=== PATIENT | female | born 1995 | race Caucasian/White ===

== ENCOUNTER 2017-05-25 18:14 | Outpatient (CLI) | payer OTHER ==
--- NOTE | 2017-05-25 19:07 | RADRPT ---
PROCEDURE: US OB Limited for Estimated Weight. CLINICAL INDICATION: 21 years of age, female. Decreased movements TECHNIQUE: Multiple sonographic images of the pelvis were obtained. Transabdominal imaging only w as performed. The images were reviewed on a PACS workstation. Image quality: Satisfactory. COMPARISON: No prior studies are available for comparison. FINDINGS: Mathews : Number of fetuses: 1 GENERAL EVALUATION: Cardiac activity: Present. FHR 131 bpm Presentation: Cephalic Placenta: Placenta site: Fundal. No evidence of placental previa. Placental grade 2-3 Cervix (transabdominal): Not evaluated CLARICE: Not evaluated DATING: Clinical MANUEL: May 27, 2017 EGA based on MANUEL: 39 weeks 5 days BIOMETRY: BPD = 9.6 cm , 39 weeks 0 days HC = 33.7 cm , 38 weeks 4 days AC = 35.7 cm , 39 weeks 4 days FL = 7.3 cm , 37 weeks 3 days Composite sonographic age: 38 weeks 5 days plus or minus 3 weeks Estimated due date by ultrasound measurements: June 03, 2017 EFW 3639 grams, 56 percentile. ANATOMY: Not evaluated. IMPRESSION: 1. Single living fetus in cephalic presentation. 2. Clinical gestation age of 39 weeks 5 days and clinical MANUEL May 27, 2017 are concordant with th e composite sonographic age within 1 week. 3. Estimated weight is 3639 grams that is at the 56 percentile for gestational age. 4. Fundal placenta grade 2-3 RPTAT: HCTS Physician Drea Date Time Electronically viewed and signed by Physician Drea on 05/25/2017 19:07 CS/
--- NOTE | 2017-05-25 19:09 | RADRPT ---
PROCEDURE: OB ultrasound for biophysical profile CLINICAL INDICATION: 21 years of age, female. Decreased movements TECHNIQUE: Multiple sonographic images of the pelvis were obtained. Transabdominal view of the gr avid uterus are available for review. The images were reviewed on a PACS workstation. COMPARISON: None available. FINDINGS: breathing movement = 2/2 tone = 2/2 motion = 2/2 Amniotic fluid = 2/2 CLARICE = 11 cm Single live intrauterine in cephalic presentation. heart rate measures 129 bpm. Fundal placenta, grade 2-3. IMPRESSION: 1. Single living fetus in cephalic presentation. 2. Biophysical profile = 8/8. 3. CLARICE = 11 cm. 4. Fundal placenta grade 2-3 RPTAT: HCTS Physician Drea Date Time Electronically viewed and signed by Janelel Grace Physician on 05/25/2017 19:08 CS/
--- NOTE | 2017-05-25 21:07 | PN ---
Triage Information Date/Time May 25, 2017 Reason for visit: DFM Weeks of Gestation 39w 5d /Para 1/0 Diabetes: none Hypertention: none Additional information PMHx: none. PSHx: none. NKDA. Objective T=97.9 BP 100/56 Heart Rate: 130's Heart Rate Comments with accels to 150's. No decels. Contractions: >10 Minutes Apart Exam Cervix closed in the office today, done by Dr Velazquez. Results/Medications Imaging Results EFW 3639 grams. VTX. BPP 05/09 with an CLARICE of 11. Disposition: Discharge Assessment/Plan Per Dr Velazquez, he wants the pt to return on 05/27 for a repeat CLARICE/BPP. Labor precautions reviewed with pt. ANA CRISTINA RABAGO MD May 25, 2017 21:06
--- NOTE | 2017-05-25 21:13 | TRIAGE ---
OB Triage Datetime Report Generated by CPN: 05/25/2017 21:13 Datetime: 05/25/2017 18:20 Stage of : OB Triage Assessment Type: Triage Maternal Assessment Level of Consciousness: Fully Conscious DTR's/Clonus: DTRs 2+; No Clonus Headache: Denies Blurred Vision: No Respiratory Effort: Unlabored; Regular Rhythm; Equal Expansion Breath Sounds, Left: Clear and Equal Breath Sounds, Right: Clear and Equal Nausea/Vomiting: Denies RUQ Epigastric Pain: Denies Lower Extremities Edema: None Degree: None Upper Extremities Edema: None Degree: None Facial Edema: None Temperature Route: Oral Fall Risk Assessment History of Falling: (0) No Secondary Diagnosis: (0) No Ambulatory Aid: (0) Bedrest/Nurse Assist IV Therapy: (0) No Gait: (0) Normal/Bedrest/Immobile Mental Status: (0) Oriented to Own Ability Fall Score: 0 Fall Risk Score Definition: No Risk: No action required Labor Evaluation Monitor Mode: External Pattern: Normal: <= 5 Contractions in 10 Minutes Resting Tone [place]: Relaxed Heart Rate FHR Baseline Rate: 130 Monitor Mode: External US Variability: Moderate 6-25 bpm Accelerations: 15X15 Decelerations: None Category: Category I Pain Assessment Pain Scale: 0 Pain Presence: None/Denies Pain Type: N/A Datetime: 05/25/2017 18:19 EGA: 39.5 Datetime: 05/25/2017 18:17 Time of Arrival: 05/25/2017 18:11 Arrived By: Ambulatory Arrived From: [facility] Office Chief Complaint: SENT FRO, CLINIC FOR DFM Movement: Decreased Contractions: Denies/Absent Rupture of Membranes: Denies Vaginal Bleeding: None Vaginal Discharge: Denies Recent Sexual Intercouse: Denies Abdominal Trauma: Not Applicable Patient Complaints: None Initial Plan: NST, BPP/CLARICE
== END 2017-05-25 21:03 | disposition home or self-care (01) ==
LOC: OBT 18:14 → L-D 18:16 → OBT 21:03
PROVIDERS: ATTEND Obstetrics & Gynecology
DX: O36.8130 Decreased fetal movements, third trimester, not applicable or unspecified (principal); Z3A.39 39 weeks gestation of pregnancy
CPT/HCPCS: 76815; 76818; Z7500; G0463

== ENCOUNTER 2017-05-27 14:29 | Inpatient (IN) | payer OTHER ==
[~2017-05-27] VITALS: Ht 157.5 cm; Wt 78.3 kg
[2017-05-27] MEDS: LACTATED RINGER'S 1,000 ML IV SCH (02:00)
[2017-05-27 14:51] VITALS: Ht 157.5 cm; Wt 78.3 kg
[2017-05-27 14:53] VITALS: BP_SYST 101
[2017-05-27] MEDS ORDERED: FOLI0.4T2 PO (14:57)
[2017-05-27] MEDS ORDERED: PRENAT PO (14:57)
[2017-05-27] MEDS ORDERED: CALC600T5 PO (15:00)
[2017-05-27] MEDS ORDERED: CALC-84 PO (15:00)
[2017-05-27] MEDS ORDERED: FERR325C PO (15:00)
--- NOTE | 2017-05-27 15:53 | RADRPT ---
PROCEDURE: Obstetrical ultrasound for biophysical profile CLINICAL INDICATION: Biophysical profile. . TECHNIQUE: Obstetrical ultrasound of the uterus for biophysical profile. Transabdominal views are obtained. COMPARISON: 05/27/2017 FINDINGS: Single intrauterine gestation. Presentation: Cephalic. Placenta: Fundal - posterior No evidence of placental abruption. No evidence of placenta previa. breathing movement = 2/2 tone = 2/2 motion = 2/2 CLARICE = 2/2 R-NST 2/2 CLARICE = 10.3 cm heart rate: 163 beats per minute IMPRESSION: Single intrauterine gestation. Biophysical profile 07/11 RPTAT: AADD .aKveh Luna MD, Date Time Electronically viewed and signed by .Kaveh Luna MD, on 05/27/2017 15:53 .B/
--- NOTE | 2017-05-27 17:46 | RADRPT ---
PROCEDURE: US OB. CLINICAL INDICATION: Size and dates TECHNIQUE: Multiple sonographic images of the pelvis and gravid uterus were obtained. The images were reviewed on a PACS workstation. COMPARISON: 05/25/2017 FINDINGS: There is a single viable intrauterine gestation. Cardiac activity is present with 141 beats per min samish. There is a vertex presentation. There is a normal amount of amniotic fluid with an CLARICE = 10.3 cm. Measurements were made in order to determine age. The results are as follows: BPD =9.7 cm HC =32.7 cm AC =31.1 cm FL =7.4 cm Estimated gestational age of approximately 37 weeks and 2 days based on ultrasound measurements. Clinical age: 40 weeks and 0 days. The estimated date of delivery is 06/15/2017, based on ultrasound measurements. The EFW = 2939 g, 7%, based on LMP age. RPTAT: AA IMPRESSION: Single viable intrauterine gestation of approximately 37 weeks and 2 days based on ultrasound measu rements. Smaller than clinical age by almost 3 weeks. .Edy Kennedy MD, MD Date Time Electronically viewed and signed by .Edy Kennedy MD, on 05/27/2017 17:46 .S/
[2017-05-27] MEDS ORDERED: LIDOCAINE 1% (MPF) 30 ML INJ INJ PRN (19:00)
[2017-05-27] MEDS ORDERED: MINERAL OIL LIGHT 10 ML VIAL TOP PRN (19:00)
[2017-05-27] MEDS ORDERED: OXYTOCIN 30 UNITS/LR 500 ML IV PRN (19:00)
[2017-05-27] MEDS ORDERED: METHYLERGONOVINE 0.2 MG INJ IM PRN (19:00)
[2017-05-27] MEDS ORDERED: CARBOPROST 250 MCG INJ IM PRN (19:00)
[2017-05-27] MEDS ORDERED: IBUPROFEN 600 MG TAB PO PRN (19:00)
[2017-05-27] MEDS ORDERED: LACTATED RINGER'S 1,000 ML IV PRN (19:00)
[2017-05-27] MEDS ORDERED: MISOPROSTOL 200 MCG TAB PR PRN (19:00)
[2017-05-27] MEDS ORDERED: OXYTOCIN 30 UNITS/LR 500 ML IV SCH ×2 (19:00)
[2017-05-27 20:06] LABS: BASOPHILS % 0.3 % (0.0-2.0); EOSINOPHILS # 0.1 10^3/ul (0.0-0.5); EOSINOPHILS % 0.8 % (0.0-7.0); HEMOGLOBIN 12.7 g/dl (12.0-16.0); LYMPHOCYTES # 2.1 10^3/ul (0.8-2.9); LYMPHOCYTES % 34.7 % (18.0-55.0); MEAN CORPUSCULAR HEMOGLOBIN 30.5 pg (29.0-33.0); MEAN CORPUSCULAR HGB CONC 34.3 g/dl (32.0-37.0); MEAN CORPUSCULAR VOLUME 88.9 fl (72.0-104.0); MEAN PLATELET VOLUME 10.6 fl (7.4-10.4); MONOCYTE # 0.5 10^3/ul (0.3-0.9); MONOCYTES % 7.7 % (0.0-13.0); NEUTROPHILS % 56.2 % (30.0-74.0); PLATELET COUNT 191 10^3/UL (140-415); RED BLOOD COUNT 4.16 10^6/ul (4.20-5.40); RED CELL DISTRIBUTION WIDTH 12.8 % (11.5-14.5)
[2017-05-27 20:17] LABS: INR 0.91; PROTIME 12.3 Sec (12.2-14.2)
[2017-05-27 20:18] LABS: PARTIAL THROMBOPLASTIN TIME 28.7 Sec (25.0-35.0)
[2017-05-28] MEDS: MISOPROSTOL 100 MCG TAB PO SCH ×5 (02:51→17:00)
[2017-05-28] MEDS: LACTATED RINGER'S 1,000 ML IV SCH ×3 (08:30→19:15)
[2017-05-28] MEDS: OXYTOCIN 30 UNITS/LR 500 ML IV SCH (20:05)
--- NOTE | 2017-05-28 22:05 | HP ---
Date/Time of Note Date/Time of Note DATE: 05/28/17 TIME: 22:03 OB - History Hx of Present Chief Complaint: Decreased movement Estimated Due Date: May 27, 2017 : 1 Para: 0 Spontaneous : 0 Therapeutic : 0 Care: Good Care Ultrasounds: Normal mid trimester US Obstetrical Complications: None Medical Complications: None Past Family/Social History * Past Medical, Surgical, Family and Obstetric Histories reviewed from chart. GBS Status: Negative OB Admission Exam Vital Signs Vital Signs Vital Signs Date Time Temp Pulse Resp B/P Pulse Ox O2 Delivery O2 Flow Rate FiO2 05/27/17 14:53 98.0 80 20 101/56 Room Air Physical Exam HEENT: WNL Heart: Rhythm Normal Lungs: Clear, Equal Abdomen: WNL Extremities: Normal Reflexes: Normal Cervical Dilatation: 1cm Effacement: 50% Station: -1 Membranes: Intact Heart Rate: 120's Accelerations: Accelerations Present Decelerations: No Decelerations Varibility: Moderate Last 72 hours Lab Results CBC & BMP 05/27/17 19:35 OB Assessment/Plan Reason for admission: induction of labor Plan: Induction Induction Method: per Misoprostol Protocol IDANIA HSU MD May 28, 2017 22:05
[2017-05-28] MEDS: BUTORPHANOL 2 MG INJ IV PRN (23:50)
[2017-05-29] MEDS: LACTATED RINGER'S 1,000 ML IV SCH ×3 (01:00→14:54)
[2017-05-29] MEDS: BUTORPHANOL 2 MG INJ IV PRN (02:45)
[2017-05-29] MEDS ORDERED: FENTAnyl 2MCG/ML-ROPIV 0.2% 100 ML ONE (05:11)
[2017-05-29] MEDS ORDERED: FENTAnyl 2MCG/ML-ROPIV 0.2% 100 ML BAG EPI SCH (05:30)
[2017-05-29] MEDS ORDERED: NALOXONE (0.4 MG/ML) INJ IV PRN (05:30)
[2017-05-29] MEDS ORDERED: ONDANSETRON 4 MG INJ IV PRN (05:30)
[2017-05-29] MEDS ORDERED: DIPHENHYDRAMINE 50 MG INJ IV PRN (05:30)
[2017-05-29] MEDS: OXYTOCIN 30 UNITS/LR 500 ML IV SCH (08:55)
[2017-05-29] MEDS ORDERED: LACTATED RINGER'S 1,000 ML IV SCH ×2 (17:56)
[2017-05-29 21:15] VITALS: BP 132/80; PULSE 99; RESP 20
[2017-05-29 21:30] VITALS: BP 122/72; PULSE 74; RESP 20
[2017-05-29 21:45] VITALS: BP 134/76; PULSE 72
[2017-05-29 22:40] VITALS: BP 121/74; PULSE 61; RESP 18
[2017-05-29] MEDS: LACTATED RINGER'S 1,000 ML IV* SCH (23:01)
[2017-05-29] MEDS ORDERED: ACETAMINOPHEN 325 MG TAB PO PRN (23:30)
[2017-05-29] MEDS ORDERED: HYDROCODONE/APAP (5/325) TAB PO PRN (23:30)
[2017-05-29] MEDS ORDERED: CARBOPROST 250 MCG INJ IM PRN (23:30)
[2017-05-29] MEDS ORDERED: WITCH HAZEL/GLYCERIN PAD PR PRN (23:30)
[2017-05-29] MEDS ORDERED: OXYTOCIN 30 UNITS/LR 500 ML IV PRN (23:30)
[2017-05-29] MEDS ORDERED: METHYLERGONOVINE 0.2 MG INJ IM PRN (23:30)
[2017-05-29] MEDS ORDERED: DIBUCAINE 1% 30 GM OINT PR PRN (23:30)
[2017-05-29] MEDS ORDERED: BENZOCAINE 20% 56 ML SPRAY TOP PRN (23:30)
[2017-05-29] MEDS ORDERED: MISOPROSTOL 200 MCG TAB PR PRN (23:30)
[2017-05-29] MEDS: IBUPROFEN 600 MG TAB PO SCH (23:37)
[2017-05-30] VITALS: BP 99/61; PULSE 60; RESP 18
[2017-05-30] MEDS: LACTATED RINGER'S 1,000 ML IV* SCH (01:34)
[2017-05-30 04:10] VITALS: BP 139/42; PULSE 76; RESP 18
[2017-05-30] MEDS: IBUPROFEN 600 MG TAB PO SCH ×3 (06:11→18:02)
[2017-05-30 07:45] VITALS: BP 91/49; PULSE 70; RESP 16
--- NOTE | 2017-05-30 08:25 | LDN ---
Date/Time of Note Date/Time of Note DATE: 05/30/17 TIME: 08:23 Delivery Summary Weeks of Gestation 40 weeks Placenta Delivered: Spontaneously Meconium: none Episiotomy: No Laceration repair: Vaginal laceration repaired with 3-0 Vicryl. Anesthesia type: Epidural Estimated blood loss: 300 Sponge & Needle done & correct: Yes All needle counts correct: Yes Any foreign bodies felt in the: No Problems: Delivery Information Sex Infant Sex: male Apgars 1 Minute: 8 5 Minute: 9 Suctioning Nose & mouth suctioned at nawaf: Yes Delee suction performed: No Umbilical Cord Umbilical cord with: 3 Vessels Cord presentations: no nuchal cord Cord Blood was obtained: Yes Mother & Baby Disposition Disposition Mom & Baby to Maternity; Good: Yes IDANIA HSU MD May 30, 2017 08:25
[2017-05-30 10:14] LABS: BASOPHILS % 0.2 % (0.0-2.0); EOSINOPHILS # 0.1 10^3/ul (0.0-0.5); EOSINOPHILS % 0.3 % (0.0-7.0); HEMATOCRIT 31.8 % (37.0-47.0); HEMOGLOBIN 10.8 g/dl (12.0-16.0); LYMPHOCYTES # 2.4 10^3/ul (0.8-2.9); LYMPHOCYTES % 16.4 % (18.0-55.0); MEAN CORPUSCULAR HEMOGLOBIN 30.3 pg (29.0-33.0); MEAN CORPUSCULAR VOLUME 89.1 fl (72.0-104.0); MEAN PLATELET VOLUME 10.5 fl (7.4-10.4); MONOCYTE # 1.1 10^3/ul (0.3-0.9); MONOCYTES % 7.4 % (0.0-13.0); NEUTROPHILS % 75.2 % (30.0-74.0); PLATELET COUNT 153 10^3/UL (140-415); RED BLOOD COUNT 3.57 10^6/ul (4.20-5.40); RED CELL DISTRIBUTION WIDTH 13.4 % (11.5-14.5); WHITE BLOOD COUNT 14.4 10^3/ul (4.8-10.8)
[2017-05-30] MEDS: SENNA/DOCUSATE NA (8.6MG/50MG) TAB PO SCH ×2 (11:02→22:15)
[2017-05-30 12:00] VITALS: BP 100/48; PULSE 72; RESP 18
[2017-05-30 15:30] VITALS: BP 100/52; PULSE 78; RESP 18
[2017-05-30 20:00] VITALS: BP 85/58; PULSE 61; RESP 18
--- NOTE | 2017-05-30 22:33 | QN ---
Documentation Comment No complaint Afebrile VSS Fundus firm Lochia scant PPD #1 Stable Continue present care. IDANIA HSU MD May 30, 2017 22:33
[2017-05-31 04:00] VITALS: BP 97/61; PULSE 67; RESP 19
[2017-05-31] MEDS: IBUPROFEN 600 MG TAB PO SCH ×3 (06:00→11:51)
[2017-05-31 08:00] VITALS: BP 89/54; PULSE 73; RESP 18
--- NOTE | 2017-05-31 08:59 | DS ---
Date/Time of Note Date/Time of Note DATE: 05/31/17 TIME: 08:58 Obstetrical Discharge Record Final Diagnosis Final Diagnosis: Term delivered Vaginal Delivery Obstetrical Delivery: Spontaneous Condition on Discharge Physical Assessment Voiding: Yes Bowel Movement: Yes Breast: Soft, non-tender Calf Tenderness: No Patient Condition: Stable IDANIA HSU MD May 31, 2017 08:59
[2017-05-31] MEDS ORDERED: DIPHTH/TET/ACEL PERTUSS (ADULT) 0.5 ML VIAL IM* ONE (09:00)
[2017-05-31] MEDS: SENNA/DOCUSATE NA (8.6MG/50MG) TAB PO SCH (10:00)
== END 2017-05-31 14:20 | disposition home or self-care (01) | DRG 775 ==
LOC: OBT 14:29 → L-D 14:30 → OBT 18:35 → L-D 05-29 20:52 → PP1 05-29 22:48
PROVIDERS: ADMIT Obstetrics & Gynecology; ATTEND Obstetrics & Gynecology
PROC: 10E0XZZ Delivery of Products of Conception, External Approach (ICD-10-PCS; principal; 2017-05-30)
PROC: 0UQGXZZ Repair Vagina, External Approach (ICD-10-PCS; 2017-05-30)
PROC: 3E033VJ Introduction of Other Hormone into Peripheral Vein, Percutaneous Approach (ICD-10-PCS; 2017-05-30)
DX: O48.0 Post-term pregnancy (principal); O71.4 Obstetric high vaginal laceration alone; Z3A.40 40 weeks gestation of pregnancy; Z37.0 Single live birth
CPT/HCPCS: 76815; 76818; 85025; 85610; 85730; 86592; 86900; 86901; 87340; 90715; 99464; G0463; J0595; J2210; J2590; J3010; J7120